=== PATIENT | female | born 1965 | race Two or more races ===

== ENCOUNTER 2016-09-02 12:00 | Day surgery (SDC) | payer OTHER ==
[~2016-09-02] VITALS: Ht 157.5 cm; Wt 84.0 kg
[~2016-09-02 12:00] MED LIST: 0.9% Sodium Chloride 1,000 ML IV SCH; LOSA1TAB70 PO; MAGN400T4 PO; METF500T4 PO; METO25TA99 PO; Sodium Chloride LOK Flush 10 mL Syringe IV PRN; fentaNYL-PF 50 mCg/mL 2 mL Inj IVPUSH PRN
[2016-09-02 12:35] VITALS: BP 136/84; PULSE 68; RESP 16; O2SAT 97
[2016-09-02 13:57] VITALS: BP 131/82; PULSE 56; RESP 14; O2SAT 99
[2016-09-02 14:07] VITALS: BP 121/75; PULSE 62; RESP 14; O2SAT 100
[2016-09-02 14:16] VITALS: BP 123/73; PULSE 62; RESP 16; O2SAT 100
--- NOTE | 2016-09-02 14:17 | ENDO ---
[address] [address] ENDOSCOPY PROCEDURE PATIENT: JOB YANCEY : 1965 MR#: [id number] ADMIT: 09/02/2016 JOB ID: [id number] DATE: 09/02/2016 PROCEDURE: Colonoscopy. INDICATION: Screening. The patient's ASA classification is 2. Mallampati score is 2. MEDICATIONS: 1. Versed 4 mg. 2. Fentanyl 75 mcg. INSTRUMENT USED: PCF H 190 L. PREPARATION QUALITY: Was good. PROCEDURE DETAILS: After informed consent was obtained, the patient was brought into the GI suite, where she was placed on oxygen via nasal cannula and monitored with continuous pulse oximeter, telemetry, and blood pressure monitoring. A time-out was performed. Then, she was placed in the left lateral decubitus position and medications were administered for sedation. Digital rectal examination was performed and was unremarkable. The colonoscope was then inserted into the rectum and advanced under direct visualization to the cecum, which was identified by the presence of the ileocecal valve and appendiceal orifice. Once the cecum was reached, colonoscope was withdrawn back into the rectum as the mucosa and lumen were examined. In the rectum, retroflexion was performed. Following retroflexion, remaining air in the rectum was suctioned, and the procedure was completed. FINDINGS: 1. In the descending colon, there was a 6 mm sessile polyp that was removed with a hot snare. 2. In the sigmoid colon, there was a 6 mm sessile polyp that was removed with a hot snare. 3. In the sigmoid colon distal to the above mentioned polyp, there was a diminutive polyp that was removed with cold biopsy forceps. The remainder the colon examination was otherwise unremarkable. IMPRESSION: 1. Descending colon polyp. 2. Two sigmoid polyps. RECOMMENDATIONS: 1. Avoid nonsteroidal anti-inflammatory drugs and anticoagulants for 72 hours. 2. Repeat colonoscopy pending polyp pathology results. COMPLICATIONS: None. ESTIMATED BLOOD LOSS: Less than 5 mL. MTDD
[2016-09-02 14:22] VITALS: BP 119/72; PULSE 58; RESP 16; O2SAT 100
--- NOTE | 2016-09-06 11:18 | PATH ---
SURGICAL PATHOLOGY Attending Physician:Josefina Overton CASE STATUS: Signed Out PATIENT NAME: JOB YANCEY PID: [id number] : 1965 DATE COLLECTED:09/02/2016 00:00 SPECIMEN: 1: Colon, Biopsy 2: Colon, Biopsy CLINICAL HISTORY: 1). DESCENDING COLON POLYP 2). SIGMOID COLON POLYP FINAL DIAGNOSIS: 1.DESCENDING COLON POLYP: TUBULAR ADENOMA INVOLVING BOTH BIOPSY FRAGMENTS. 2.SIGMOID COLON POLYP: TUBULAR ADENOMA INVOLVING ALL BIOPSY FRAGMENTS. ICD10 CODE D12.4 GROSS DESCRIPTION: The specimen is received in two formalin filled containers labeled with the patient's name. 1). The specimen is sublabeled "descending colon polyp" and consists of 2 portions of tissue which aggregate to 0.4 x 0.4 x 0.3 CM. The specimen is entirely submitted in cassette 1A. 2). The specimen is sublabeled "sigmoid colon polyp" and consists of 4 portions of tissue which aggregate to 0.5 x 0.5 x 0.3 CM. The specimen is entirely submitted in cassette 2A. 09/03/2016 [facility] MICRO DESCRIPTION: See diagnosis. ICD-9 CODES: CPT CODES: 1: 61435 2: 48409 Electronically Signed Out Laci Gomez MD [facility] Pathology [facility] [address], [place] [address] Technical component performed at [facility], [facility] [address], [place], [address]
== END 2016-09-02 23:59 | disposition home or self-care (01) ==
LOC: END 12:00
PROVIDERS: ATTEND Internal Medicine Gastroenterology
DX: Z12.11 Encounter for screening for malignant neoplasm of colon (principal); D12.4 Benign neoplasm of descending colon; D12.5 Benign neoplasm of sigmoid colon; I10 Essential (primary) hypertension; E11.9 Type 2 diabetes mellitus without complications; Z79.84 Long term (current) use of oral hypoglycemic drugs
CPT/HCPCS: 45380; 45385; G0500; J2250; J3010; J7030